=== PATIENT | male | born 1995 | race Caucasian/White ===

== ENCOUNTER 2025-06-14 18:08 | Emergency (ER) | payer OTHER, SELFPAY ==
[2025-06-14 18:12] VITALS: BP 131/64
[2025-06-14 18:41] LABS: Urine Character Clear (Clear)
[2025-06-14 18:43] LABS: Hematocrit 38.8 % (39.0-52.0); Hemoglobin 13.7 g/dL (13.0-18.0); Mean Corp Hgb Conc. 35.3 g/dL (33.0-37.0); Mean Corpuscular Volume 86.6 fL (80.0-94.0); Nucleated Red Blood Cells % 0 % (-); Platelet Count 229 10^3/uL (130-400); Red Cell Dist. Width 11.9 % (11.5-14.5)
[2025-06-14 18:51] LABS: ALT (SGPT) 14 U/L (0-50); AST (SGOT) 18 U/L (17-59); Albumin 4.6 g/dl (3.5-5.0); Alkaline Phosphatase 65 U/L (38-126); Blood Urea Nitrogen 11 mg/dl (9-20); Calcium 9.3 mg/dl (8.4-10.2); Carbon Dioxide 27 mmol/L (22-30); Chloride 103 mmol/L (98-107); Glucose 91 mg/dl (70-99); Potassium 4.1 mmol/L (3.5-5.1); Sodium 137 mmol/L (135-145); Total Protein 7.2 g/dl (6.3-8.2); eGFR > 60.00
[2025-06-14 22:00] VITALS: BP 128/74
--- NOTE | 2025-06-15 01:11 | ED.GENMED ---
History of Present Illness
General
Chief Complaint: Abdominal Symptoms
Source: patient
Exam Limitations: none
Time Seen by Provider: 06/15/25 01:09
Nursing documentation reviewed up to this point in time: agreed with
History of Present Illness
History of Present Illness:
CC: Abdominal pain
HPI:
29-year-old male with a past medical history of IBS, asthma, lactose intolerance presents to URI with concerns of abdominal pain for the past three days. Patient reports that he noticed that the pain ould come on during the nighttime after eating
dinner it would last a few hours. 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 He also noted a 'funny ' tion you're the rectum and a little bit of discomfort with your
nation that has since passed. He denies any rectal bleeding. He denies any blood in the urine. He he is not sure if this could represent an IBS flare. He has not had any dairy containing foods recently . He denies Any abdominal surgeries other than
kidney stone soon removal. He currently does not take any medications.
EXAM:
General: Patient is well appearing and in no acute distress; non-toxic
Skin: Warm and dry, no rashes or lesions
Head: Normocephalic, atraumatic
Eyes: Sclera non-icteric. EOMs intact.
Cardiac: Regular rate and rhythm, no murmurs
Pulm: Normal respiratory effort, no wheezes, rales, or rhonchi
Abdomen: Mild left sided abdominal tenderness to palpation, no CVA tenderness
Neuro: CN II-XII intact, no focal neurologic deficits.
Psychiatric: Appropriate mood and affect.
ED COURSE:
Nausea improved with zofran
NUMBER AND COMPLEXITY OF PROBLEMS ADDRESSED AT THE ENCOUNTER
� Chronic conditions affecting care: IBS, lactose intolerance
� Acute Exacerbation and/or Progression of Chronic Illness: n/a
� Differential Diagnosis includes: passage of renal stone, constipation, diverticulitis, UTI
AMOUNT AND/OR COMPLEXITY OF DATA TO BE REVIEWED AND ANALYZED
� I performed an independent evaluation of and my interpretation is:
EKG: not indicated
CT: no acute disease, degree of constipation
Laboratory Studies: no leukocytosis, CMP unremarkable
Other:
� Review of other/old records: no prior records in [facility] to review
� Clinical information was obtained by an independent historian:
� Prescriptions/Medications Considered but not given: offered prescription for zofran but patient declined
� Further testing considered but not performed:n/a
RISK OF COMPLICATIONS AND/OR MORBIDITY OR MORTALITY OF PATIENT MANAGEMENT
� Social determinants of health affecting care: none
� Escalation of care including admission/observation vs risk of discharge considered:
Admit not inidicated, patient stable for discharge
MDM/DISPOSITION
29-year-old male presents the ER today with concerns of intermittent abdominal pain and nausea. He has not had any vomiting or fevers. No diarrhea. I'm physical exam, he's well appearing and in no acute distress. He has minimal abdominal
tenderness. His blood work was unremarkable. His analysis does not show any signs of infection. Patient does know a degree of constipation recently. CAT scan findings reviewed, mild to moderate colonic stool burden noted. But no acute findings.
Symptoms may be related to IBS/ constipation. Recommend recommended MiraLAX and recommended follow up with re provider. Patient stable for discharge.
Phy Exam
Physical Exam
Physical Exam:
see hpi
Course
Orders/Labs/Results
Orders:
Orders
06/14/25 18:29
Complete Blood Count/With Diff Urgent
Comprehensive Metabolic Panel Urgent
Urinalysis Reflex To Culture Urgent
Date Specimen was Collected: 06/14/25
Time Specimen was Collected: 18:19
06/15/25 01:23
CT Abd/pelvis W Iv Cont Urgent
Comment:
Reason For Exam: left flank pain, b/l ab pain
Ondansetron Injectable [Zofran] 4 mg IV NOW STA
Abnormal Lab Results
06/14/25
18:29
RBC 4.48 L 10^6/uL
(4.70-6.10)
Hct 38.8 L %
(39.0-52.0)
Abs Immat Gran (auto) 0.1 H 10^3/uL
(0-0.05)
Immature Gran % 0.6 H %
(0-0.5)
06/14/25 18:29
06/14/25 18:29
Vital Signs
Initial and Last Documented VS:
Initial Vital Signs
Temp Pulse Resp BP Pulse Ox
97.7 F 56 20 131/64 99
06/14/25 18:12 06/14/25 18:12 06/14/25 18:12 06/14/25 18:12 06/14/25 18:12
Last Documented Vital Signs
Temp Pulse Resp BP Pulse Ox
97.7 F 60 18 107/45 99
06/14/25 18:12 06/15/25 04:17 06/14/25 22:00 06/15/25 04:17 06/15/25 04:17
*Pulse Oximetry
SaO2: 98
Oxygen Mode of Delivery: Room air
Patient hypoxic: no
*Critical Care Note
Total Time (30-74mins, 75-104mins- exclusive of procedures): Not Applicable
ED Attending Note
-
Portions of this chart may have been created with voice recognition software.� Occasional wrong word or��sound alike� substitutions may have occurred due to the inherent limitations of voice recognition software.
Discharge Plan
Departure
Patient Disposition: Home (Routine Discharge)
Date of Disposition: 06/15/25
Time of Disposition: 03:48
Patient with high blood pressure during this ER visit?: Yes
Condition: Good
Discharge Problem:
Flank pain, Abdominal pain
Instructions: Flank pain - ED (DC), Abdominal Pain
Referrals:
NONE,* [Family Provider, Internal Medicine]
Activity Restrictions/Additional Instructions:
Please continue to monitor your symptoms.
Please return to ER should you develop intractable nausea or vomiting, blood in your urine, chest pain, shortness of breath, fainting spells, or any other signs or symptoms worrisome to you.
Interventions
Interventions:
*General Assessment Last Done: 06/14/25 18:12
*Neglect/Abuse Screening Last Done: 06/15/25 01:16
*ED COVID-19 Vaccine History Last Done: 06/15/25 01:16
*ED Influenza Vaccine History Last Done: 06/15/25 01:16
[facility] Risk Assessment Tool Last Done: 06/15/25 01:16
*Risk Screen - Suicide (C-SSRS) Last Done: 06/14/25 18:12
*Nursing Disposition Last Done: 06/15/25 04:17
[facility] Assessment Last Done: 06/15/25 01:20
Discharge Date and Time
Discharge Date/Time: 06/15/25 04:18
Print Language: PORTUGUESE
[2025-06-15 01:16] VITALS: BMI 25.1
[2025-06-15] MEDS: ZOFRAN 4 MG IV (01:39)
[2025-06-15 04:17] VITALS: BP 107/45
== END 2025-06-15 04:18 | disposition home or self-care (01) ==
LOC: EMR 18:08
PROVIDERS: Emergency Medicine; EMERGENCY PHYSICIAN Student in an Organized Health Care Education/Training Program
DX: R10.A2 Flank pain, left side (principal); R10.9 Unspecified abdominal pain; K58.9 Irritable bowel syndrome, unspecified; J45.909 Unspecified asthma, uncomplicated
CPT/HCPCS: 99284; 96374; 74177; 80053; 81003; 85025; Q9967